=== PATIENT | female | born 1970 | race Caucasian/White ===

== ENCOUNTER 2016-07-04 02:42 | Emergency (ER) | payer SELFPAY ==
[~2016-07-04] VITALS: Ht 167.6 cm; Wt 80.0 kg
[2016-07-04 02:44] VITALS: BP 136/77; PULSE 107; RESP 16; TEMP 97.3; O2SAT 97
[2016-07-04] MEDS ORDERED: LAMO25 PO (03:27)
[2016-07-04] MEDS ORDERED: GABA300C5 PO (03:27)
[2016-07-04] MEDS ORDERED: VENL75TA2 PO (03:27)
[2016-07-04] MEDS ORDERED: QUET150XR PO (03:27)
[2016-07-04] MEDS ORDERED: XANA1TAB2 PO (03:27)
[2016-07-04] MEDS ORDERED: PRAZ1CAP PO (03:27)
[2016-07-04] MEDS ORDERED: ESZO3TAB4 PO (03:27)
[2016-07-04] MEDS ORDERED: ADDE10 PO (03:27)
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
[2016-07-04 03:50] LABS: AUTOMATED NEUTROPHIL # 5.8 TH/MM3 (1.8-7.7); BASOPHIL # 0.1 TH/MM3 (0-0.2); BASOPHIL % 0.9 % (0.0-2.0); EOSINOPHIL # 0.2 TH/MM3 (0-0.4); EOSINOPHIL % 1.5 % (0.0-4.0); HEMATOCRIT 41.7 % (35.0-46.0); HEMO FLAGS DIFF FINAL; LYMPH % 42.5 % (9.0-44.0); LYMPHOCYTE # 5.1 TH/MM3 (1.0-4.8); MEAN CELL VOLUME 93.8 FL (80.0-100.0); MEAN CORPUSCULAR HEMOGLOBIN 32.2 PG (27.0-34.0); MEAN CORPUSCULAR HGB CONC 34.3 % (32.0-36.0); MONO % 6.9 % (0.0-8.0); NEUT % 48.2 % (16.0-70.0); PLATELET COUNT 216 TH/MM3 (150-450); RED BLOOD COUNT 4.44 MIL/MM3 (4.00-5.30); RED CELL DISTRIBUTION WIDTH 12.8 % (11.6-17.2); WHITE BLOOD COUNT 12.1 TH/MM3 (4.0-11.0)
[2016-07-04 04:05] LABS: AMPHETAMINE, URINE NEG (NEG); BARBITURATES, URINE NEG (NEG); COCAINE, URINE NEG (NEG)
[2016-07-04 04:07] LABS: ACETAMINOPHEN LESS THAN 2.0 MCG/ML (10.0-30.0); ALKALINE PHOSPHATASE 93 U/L (45-117); ALT (GPT) 17 U/L (10-53); TOTAL BILIRUBIN ADULT 0.1 MG/DL (0.2-1.0)
[2016-07-04 04:10] LABS: ANION GAP 8 MEQ/L (5-15); AST (GOT) 19 U/L (15-37); BICARBONATE 27.1 MEQ/L (21.0-32.0); BLOOD UREA NITROGEN 10 MG/DL (7-18); CHLORIDE 108 MEQ/L (98-107); GLOMERULAR FILTRATION RATE 89 ML/MIN (>89); POTASSIUM 3.7 MEQ/L (3.5-5.1); SODIUM (NA) 143 MEQ/L (136-145)
[2016-07-04 06:46] VITALS: BP 181/84; PULSE 94; RESP 18; O2SAT 96
[2016-07-04 10:34] VITALS: BP 119/56; PULSE 76; RESP 18; O2SAT 96
== END 2016-07-04 15:08 | disposition home or self-care (01) ==
LOC: NEPA 02:42 → NEPJ 15:08
DX: F32.9 Major depressive disorder, single episode, unspecified (principal); R45.851 Suicidal ideations; F43.10 Post-traumatic stress disorder, unspecified; F17.210 Nicotine dependence, cigarettes, uncomplicated
CPT/HCPCS: 80053; 80307; 85025; 99283

== ENCOUNTER 2016-09-03 11:45 | Emergency (ER) | payer SELFPAY ==
[~2016-09-03] VITALS: Ht 167.6 cm; Wt 78.5 kg
[~2016-09-03 11:45] MED LIST: ADDE10 PO; ESZO3TAB4 PO; GABA300C5 PO; LAMO25 PO; PRAZ1CAP PO; QUET150XR PO; VENL75TA2 PO; XANA1TAB2 PO
[2016-09-03 11:47] VITALS: BP 133/77; PULSE 88; RESP 15; TEMP 98.3; O2SAT 98
--- NOTE | 2016-09-03 12:05 | PD ---
HPI Chief Complaint: ENT Complaint Time Seen by Provider: 12:00 Travel History International Travel<30 days: No Contact w/Intl Traveler<30days: No Traveled to known affect area: No History of Present Illness HPI 46-year-old female presents to the emergency room for evaluation of sore throat for the past 5 days. Pain is severe. Worse with eating, drinking, speaking. Pain even occurs during sleep. Patient has had strep throat in the past and states this feels as severe as that. She has been taking cough drops, drinking tea, and using honey without significant relief in symptoms. She denies any sick contacts. Slight associated rhinorrhea and cough. Denies fever, chills, nausea, and vomiting. PFSH Past Medical History Bipolar Disorder: Yes Anxiety: Yes Diminished Hearing: No Medical other: Yes (chronic ankle pain) Tetanus Vaccination: Unknown Influenza Vaccination: No ?: Unknown LMP: 1 WK Menopausal: Yes Past Surgical History Other Surgery: Yes (BREAST AUGMENTATION) Social History Alcohol Use: Yes (rare) Tobacco Use: Yes (1 PPD) Substance Use: Yes (1PPD SMOKER, DRANK 5 BEERS LAST PM) Allergies-Medications (Allergen,Severity, Reaction): Coded Allergies: Bee Sting (Verified Allergy, Intermediate, Hives, 07/04/16) Reported Meds & Prescriptions Reported Meds & Active Scripts Active Reported Lamictal (Lamotrigine) 25 Mg Tab 25 Mg PO DAILY Seroquel XR (Quetiapine Fumarate) 150 Mg Tab 150 Mg PO DAILY Gabapentin 300 Mg Cap 300 Mg PO BID Venlafaxine ER 24 HR (Venlafaxine HCl) 75 Mg Tab 75 Mg PO DAILY Adderall (Amphetamine-Dextroamphetamine) 10 Mg Tab 10 Mg PO TID Avoid late evening doses. Space doses at least 4 to 6 hours if more than once/day dosing. Prazosin (Prazosin HCl) 1 Mg Cap 1 Mg PO HS Lunesta (Eszopiclone) 3 Mg Tab 3 Mg PO HS PRN Xanax (Alprazolam) 1 Mg Tab 1 Mg PO Q6H PRN Review of Systems Except as stated in HPI: all other systems reviewed are Neg Physical Exam Narrative GENERAL: Well-nourished, well-developed female in no acute distress. Afebrile. Ambulatory. SKIN: Focused skin assessment warm/dry. HEAD: Normocephalic. ENT: Mucosa pink and moist. Severe erythema without edema or exudates. No uvular edema. No uvular, palatal, or tonsillar deviation. Airway patent. Nasal turbinates appear normal without nasal blood, purulent drainage or septal hematoma. EYES: No scleral icterus. No injection or drainage. NECK: Supple, trachea midline. No JVD or lymphadenopathy. CARDIOVASCULAR: Regular rate and rhythm without murmurs, gallops, or rubs. RESPIRATORY: Breath sounds equal bilaterally. No accessory muscle use. Data Data Last Documented VS Vital Signs Date Time Temp Pulse Resp B/P Pulse Ox O2 Delivery O2 Flow Rate FiO2 09/03/16 11:47 98.3 88 15 133/77 98 Orders Group A Rapid Strep Screen (09/03/16 11:59) Strep Culture (Group A) (09/03/16 11:00) [facility] [place] Medical Decision Making Medical Screen Exam Complete: Yes Emergency Medical Condition: Yes Medical Record Reviewed: Yes Differential Diagnosis Streptococcal pharyngitis versus mononucleosis versus viral pharyngitis Narrative Course 46 year-old female presents to the emergency room for evaluation of sore throat the past 5 days. She denies systemic signs of infection. Vital signs stable. Physical exam reveals severe erythema without exudates or edema. Lung sounds clear and equal bilaterally. Rapid strep is negative. Patient discharged with prescription for Magic mouthwash. Told to follow up with her primary care physician or return to the emergency room for worsening symptoms. She understands and agrees to plan. Diagnosis Primary Impression: Acute viral pharyngitis Referrals: Primary Care Physician Patient Instructions: General Instructions, Pharyngitis (ED) Additional Instructions: Rest and drink plenty of fluids. Take Magic mouthwash as directed, as needed for pain. Take ibuprofen with food as directed, as needed for pain. Follow-up with a primary care physician. Return to the emergency room for worsening symptoms. Med/Other Pt SpecificInfo: Prescription(s) given Disposition: 01 DISCHARGE HOME Condition: Stable Heather Nunn September 03, 2016 12:05
[2016-09-03] MEDS ORDERED: MAGICPED SWISH-SWAL (12:23)
== END 2016-09-03 12:30 | disposition home or self-care (01) ==
LOC: PHEFT 11:45
DX: J02.9 Acute pharyngitis, unspecified (principal); F17.210 Nicotine dependence, cigarettes, uncomplicated
CPT/HCPCS: 87081; 87880; 99283